=== PATIENT | male | born 1990 | race African-American/Black ===

== ENCOUNTER 2020-02-19 16:24 | Emergency (ER) | payer MEDICAID ==
[~2020-02-19] VITALS: Ht 165.1 cm; Wt 64.0 kg
[2020-02-19 16:56] VITALS: Ht 165.1 cm; Wt 64.0 kg
[2020-02-19 20:38] VITALS: BP 144/87
== END 2020-02-19 20:38 | disposition home or self-care (01) ==
LOC: ED 16:24
DX: F07.81 Postconcussional syndrome (principal); S63.602A Unspecified sprain of left thumb, initial encounter; Z88.0 Allergy status to penicillin; Y04.8XXA Assault by other bodily force, initial encounter; Y93.89 Activity, other specified; Y92.89 Other specified places as the place of occurrence of the external cause; Y99.8 Other external cause status
CPT/HCPCS: J0696; J1885; Q0092